=== PATIENT | male | born 1940 | race Caucasian/White ===

== ENCOUNTER 2017-08-08 13:31 | Emergency (ER) | payer MEDICARE, MEDICAID ==
[~2017-08-08] VITALS: Ht 167.6 cm; Wt 77.0 kg
[2017-08-08] MEDS ORDERED: IBUPROFEN 800 MG TABLET PO ONE (15:00)
[2017-08-08 16:33] VITALS: BP 132/84
== END 2017-08-08 16:36 | disposition home or self-care (01) ==
LOC: EMS 13:33
DX: S63.502A Unspecified sprain of left wrist, initial encounter (principal); W18.39XA Other fall on same level, initial encounter; Y93.89 Activity, other specified; Y92.89 Other specified places as the place of occurrence of the external cause; Y99.8 Other external cause status
CPT/HCPCS: 99284

== ENCOUNTER 2019-08-16 16:19 | Emergency (ER) | payer MEDICARE, OTHER ==
[~2019-08-16] VITALS: Ht 175.3 cm; Wt 76.0 kg
[2019-08-16 19:30] VITALS: BP 135/77
== END 2019-08-16 19:46 | disposition home or self-care (01) ==
LOC: EMS 16:19
DX: S09.90XA Unspecified injury of head, initial encounter (principal); W19.XXXA Unspecified fall, initial encounter; Y93.89 Activity, other specified; Y92.89 Other specified places as the place of occurrence of the external cause; Y99.8 Other external cause status
CPT/HCPCS: 70450; 72125